=== PATIENT | male | born 1930 | race African-American/Black ===

== ENCOUNTER 2018-06-23 10:15 | Day surgery (SDC) | payer BC ==
[~2018-06-23] VITALS: Ht 180.3 cm; Wt 72.6 kg
[2018-06-23] VITALS (12 sets, daily range): BP systolic 144–153; BP diastolic 71–79
[2018-06-23] MEDS ORDERED: FENTANYL CITRATE/PF 50MCG/ML 2ML VIAL ONE (13:09)
[2018-06-23] MEDS ORDERED: SODIUM BICARBONATE 4% (2.4MEQ) 5ML VIAL IV ONE (13:12)
[2018-06-23] MEDS ORDERED: LIDOCAINE HCL 1% 20ML VIAL (Pyxis) INJ ONE (13:12)
[2018-06-23] MEDS ORDERED: FENTANYL CITRATE/PF 50MCG/ML 2ML VIAL IV ONE (13:45)
[2018-06-23] MEDS ORDERED: LABE200T28 PO (14:12)
[2018-06-23] MEDS ORDERED: APIX2.5T PO (14:12)
[2018-06-23] MEDS ORDERED: ASPI-1159 PO (14:12)
[2018-06-23] MEDS ORDERED: FURO40TA5 PO (14:12)
[2018-06-23 17:20] LABS: HEMATOCRIT 30.4 % (42.0-52.0); HEMOGLOBIN 10.1 g/dL (14.0-18.0)
== END 2018-06-23 18:00 | disposition home or self-care (01) ==
LOC: RAD 10:15
PROVIDERS: ATTEND Internal Medicine Nephrology
DX: I12.9 Hypertensive chronic kidney disease with stage 1 through stage 4 chronic kidney disease, or unspecified chronic kidney disease (principal); N18.3 Chronic kidney disease, stage 3 (moderate); E78.5 Hyperlipidemia, unspecified; I48.0 Paroxysmal atrial fibrillation; Z86.73 Personal history of transient ischemic attack (TIA), and cerebral infarction without residual deficits
CPT/HCPCS: 36415; 50200; 76942; 85014; 85018; 88305; 88346; 88348; J3010; J3490; J7050